=== PATIENT | male | born 1955 | race Caucasian/White ===

== ENCOUNTER 2016-08-20 10:13 | Inpatient (IN) | payer BC ==
--- NOTE | 2016-08-20 10:44 | EDPHY ---
H & P Time Seen by Provider: 08/20/16 10:28 HPI/ROS: CHIEF COMPLAINT: Right hip pain HISTORY OF PRESENT ILLNESS: 60-year-old male presents to the emergency department with pain in his right hip. Patient was at his home in the [facility] this afternoon and tripped over something and fell directly on his right hip on the concrete. EMS transported the patient to the emergency department. The patient complains of isolated pain to the right hip. He has pain with movement. He has been unable to bear weight. He denies hitting his head or losing consciousness. Denies headache or neck pain. Denies back pain. Denies chest pain or difficulty breathing. Denies abdominal pain. Denies symptoms in his right upper extremities or his left upper or lower extremities. Denies paresthesias. REVIEW OF SYSTEMS: Constitutional: No fever, no chills. Eyes: No double or blurry vision. ENT: No sore throat. Respiratory: No cough, no shortness of breath. Cardiac: No chest pain. Gastrointestinal: No abdominal pain, vomiting or diarrhea. Genitourinary: No dysuria. Musculoskeletal: No neck or back pain. Skin: No rashes. Neurological: No headache. Past Medical/Surgical History: Depression, BPH Social History: and lives in [place] Smoking Status: Never smoked Physical Exam: General Appearance: Alert, no distress. No visible signs of trauma to his head. Eyes: Pupils equal and round. Extraocular motions are all intact. ENT: Mouth: Mucous membranes moist. Respiratory: No wheezing, rhonchi, or rales, lungs are clear to auscultation. Cardiovascular: Regular rate and rhythm. Gastrointestinal: Abdomen is soft and nontender, no masses, no rebound or guarding, bowel sounds normal. Neurological: Alert and oriented x 3, cranial nerves II through XII grossly intact Skin: Warm and dry, no rashes. Musculoskeletal: Nontender to palpate along the cervical, thoracic or lumbar spine. Neck is supple. Extremities: Mild tenderness with palpation along the lateral aspect of the right hip. Mild pain with external and internal rotation of the right hip. His pelvis is stable. Full range of motion of his left lower extremity and upper extremities bilaterally. Psychiatric: Patient is oriented X 3, there is no agitation. Constitutional: Initial Vital Signs Temperature (C) 36.5 C 08/20/16 10:28 Heart Rate 82 08/20/16 10:28 Respiratory Rate 16 08/20/16 10:28 Blood Pressure 132/76 H 08/20/16 10:28 O2 Sat (%) 89 L 08/20/16 10:28 O2 Delivery Mode Nasal Cannula O2 (L/minute) 2 Allergies/Adverse Reactions: No Known Allergies Allergy (Unverified 08/20/16 10:27) Home Medications: Medication Instructions Recorded Percocet 5-325 mg Tablet 08/20/16 Tamsulosin HCl 08/20/16 Wellbutrin 100mg (*) 08/20/16 Medical Decision Making - Diagnostics Imaging Results: Imaging Impressions Hip X-Ray 08/20/16 10:42 Impression: Comminuted intertrochanteric fracture of the right hip. Imaging: I viewed and interpreted images myself ED Course/Re-evaluation: 60-year-old male presents to the emergency department by ambulance with isolated right hip pain after fall. X-rays reveal right intertrochanteric fracture. I spoke with physician clinic office assistant working with the on-call orthopedic surgeon, Dr. Jem Mcdonough, who will take this patient to the operating room after he is medically cleared at 4:45 p.m.. The patient will be admitted to Dr. Roberto Ricardo to the medical-surgical floor and he was kept NPO. Patient was given 0.5 mg of IV Dilaudid and 4 mg of Zofran IV for pain and nausea. Differential Diagnosis: Including but not limited to fracture, dislocation, contusion, sprain - Data Points Laboratory Results: Laboratory Results 08/20/16 13:20 08/20/16 08/20/16 13:20 13:20 WBC 9.49 10^3/uL 10^3/uL (3.80-9.50) RBC 4.57 10^6/uL 10^6/uL (4.40-6.38) Hgb 14.1 g/dL g/dL (13.7-17.5) Hct 42.7 % % (40.0-51.0) MCV 93.4 fL fL (81.5-99.8) MCH 30.9 pg pg (27.9-34.1) MCHC 33.0 g/dL g/dL (32.4-36.7) RDW 12.5 % % (11.5-15.2) Plt Count 106 10^3/uL L 10^3/uL (150-400) MPV 11.4 fL fL (8.7-11.7) Neut % (Auto) 75.0 % H % (39.3-74.2) Lymph % (Auto) 19.4 % % (15.0-45.0) Gilliam % (Auto) 4.5 % % (4.5-13.0) Eos % (Auto) 0.5 % L % (0.6-7.6) Baso % (Auto) 0.2 % L % (0.3-1.7) Nucleat RBC Rel Count 0.0 % % (0.0-0.2) Absolute Neuts (auto) 7.11 10^3/uL H 10^3/uL (1.70-6.50) Absolute Lymphs (auto) 1.84 10^3/uL 10^3/uL (1.00-3.00) Absolute Monos (auto) 0.43 10^3/uL 10^3/uL (0.30-0.80) Absolute Eos (auto) 0.05 10^3/uL 10^3/uL (0.03-0.40) Absolute Basos (auto) 0.02 10^3/uL 10^3/uL (0.02-0.10) Absolute Nucleated RBC 0.00 10^3/uL 10^3/uL (0-0.01) Immature Gran % 0.4 % % (0.0-1.1) Immature Gran # 0.04 10^3/uL 10^3/uL (0.00-0.10) Sodium Pending Potassium Pending Chloride Pending Carbon Dioxide Pending Anion Gap Pending BUN Pending Creatinine Pending Estimated GFR Pending Glucose Pending Calcium Pending Medications Given: Discontinued Medications Hydromorphone HCl (Dilaudid) 0.5 mg IVP EDNOW ONE Stop: 08/20/16 11:26 Last Admin: 08/20/16 11:34 Dose: 0.5 mg Ondansetron HCl (Zofran) 4 mg IVP EDNOW ONE Stop: 08/20/16 11:26 Last Admin: 08/20/16 11:40 Dose: 4 mg Departure - Departure Disposition: [facility] Inpatient Acute Clinical Impression: Closed right hip fracture Qualifiers: Encounter type: initial encounter Qualified Code(s): S72.001A - Fracture of unspecified part of neck of right femur, initial encounter for closed fracture Condition: Good Referrals: Patient,NotPresent [Unknown] - As per Instructions
[2016-08-20] MEDS ORDERED: HYDROmorphONE/DILAUDID 1 MG/ML SYR IVP ONE (11:25)
[2016-08-20] MEDS ORDERED: ONDANSETRON 4 MG/2 ML VIAL IVP ONE (11:25)
[2016-08-20] MEDS ORDERED: HYDROmorphONE/DILAUDID 1 MG/ML SYR ONE (11:26)
[2016-08-20 13:27] LABS: % IMMATURE GRANULYOCYTES 0.4 % (0.0-1.1); ABSOLUTE IMMATURE GRANULOCYTES 0.04 10^3/uL (0.00-0.10); ADD DIFF? NO; ADD MORPH? NO; ADD SCAN? NO; ATYPICAL LYMPHOCYTE FLAG 10 (0-99); FRAGMENT RBC FLAG 0 (0-99); HEMATOCRIT 42.7 % (40.0-51.0); HEMOGLOBIN 14.1 g/dL (13.7-17.5); LEFT SHIFT FLG 0 (0-99); LIPEMIA HEMOLYSIS FLAG 80 (0-99); MEAN CELL HEMOGLOBIN 30.9 pg (27.9-34.1); MEAN CELL VOLUME 93.4 fL (81.5-99.8); MEAN PLATELET VOLUME 11.4 fL (8.7-11.7); PLATELET CLUMPS FLAG 0 (0-99); PLATELET COUNT 106 10^3/uL (150-400); RED BLOOD CELL COUNT 4.57 10^6/uL (4.40-6.38); RED CELL DISTRIBUTION WIDTH 12.5 % (11.5-15.2)
[2016-08-20] MEDS ORDERED: ONDANSETRON DISINTEGRATING 4 MG TAB PO PRN (13:29)
[2016-08-20] MEDS ORDERED: ACETAMINOPHEN 325 MG TAB PO PRN (13:29)
[2016-08-20] MEDS ORDERED: ONDANSETRON 4 MG/2 ML VIAL IVP PRN (13:29)
[2016-08-20] MEDS ORDERED: D5W 1/2 NS W/ 20 KCl/L 1,000 ML IV SCH (13:30)
[2016-08-20] MEDS ORDERED: MAGNESIUM HYDROXIDE 30 ML UDCUP PO PRN (13:32)
[2016-08-20] MEDS ORDERED: LACTULOSE 20 GM/30 ML UDCUP PO PRN (13:32)
[2016-08-20] MEDS ORDERED: POLYETHYLENE GLYCOL 3350 17 GM PKT PO PRN (13:32)
[2016-08-20] MEDS ORDERED: BISACODYL 10 MG SUPP PR PRN (13:32)
[2016-08-20 13:38] LABS: ANION GAP 7 mEq/L (8-16); CALCIUM 8.8 mg/dL (8.5-10.4); CARBON DIOXIDE 28 mEq/l (22-31); CHLORIDE 104 mEq/L (97-110); CREATININE 0.9 mg/dL (0.7-1.3); GLOMERULAR FILTRATION RATE > 60; GLUCOSE 101 mg/dL (70-100); POTASSIUM 4.3 mEq/L (3.5-5.2); SODIUM 139 mEq/L (134-144)
[2016-08-20] MEDS ORDERED: HYDROmorphONE/DILAUDID 1 MG/ML SYR IVP PRN (15:08)
[2016-08-20] MEDS ORDERED: LIDOCAINE 1% 300 MG/30 ML SDV ONE (15:46)
[2016-08-20] MEDS ORDERED: BUPIVACAINE 0.5% 30 ML SDV ONE (15:46)
[2016-08-20] MEDS ORDERED: MIDAZOLAM 2 MG/2 ML VIAL ONE (16:13)
[2016-08-20] MEDS ORDERED: fentaNYL 100 MCG/2 ML INJ ONE ×2 (16:29→16:30)
[2016-08-20] MEDS ORDERED: PROPOFOL 200 MG/20 ML VIAL ONE (16:29)
[2016-08-20] MEDS ORDERED: DEXAMETHASONE 4 MG/ML VIAL ONE (16:30)
[2016-08-20] MEDS ORDERED: METOCLOPRAMIDE 10 MG/2 ML VIAL ONE (16:30)
[2016-08-20] MEDS ORDERED: RANITIDINE 50 MG/2 ML VIAL ONE (16:30)
[2016-08-20] MEDS ORDERED: CEFAZOLIN 2 GM/DEXTROSE/100 ML BAG IV ONE (16:37)
[2016-08-20] MEDS ORDERED: ceFAZolin 2 GM/DEXTROSE 100 ML IV ONE (17:00)
[2016-08-20] MEDS ORDERED: PHENYLEPHRINE HCL 100 MCG/ML SYR ONE (17:04)
[2016-08-20] MEDS ORDERED: epHEDrine SULFATE 10 MG/ML SYR ONE (17:14)
--- NOTE | 2016-08-20 17:24 | GHP ---
[f rep st] PREOP HISTORY AND PHYSICAL DATE OF ADMISSION: 08/20/2016 PRIMARY CARE PROVIDER: In [place], [place]. CHIEF COMPLAINT: Acute hip pain. HISTORY OF PRESENT ILLNESS: A 60-year-old male presenting with acute hip pain characterized as a sh brii, severe pain located in his right hip with onset of symptoms on the afternoon of this presentati on and duration persistent thereafter. He reports that the pain is exacerbated by movement, allevia jazmin by rest, alleviated by Dilaudid received in the emergency department. The pain began after he e xperienced a mechanical fall while he was ambulating in his back yard and tripped over a [employer] p ipe. He reports that he fell and struck his hip on concrete, immediately experiencing pa in and inability to ambulate. The patient reports that prior to his mechanical fall, he had otherwi se been feeling well, has not recently experienced any chest pain with physical exertion and has not recently experienced any reduction in exercise tolerance. He denies having any other physical trau ma other than the aforementioned hip pain. REVIEW OF SYSTEMS: Hip pain. All other 10-point review of systems otherwise negative. PAST MEDICAL HISTORY: BPH, depression, thoracic compression fracture. PAST SURGICAL HISTORY: Cervical spine fusion C5 to C7. HOME MEDICATIONS: Wellbutrin, terazosin, other medications yet to be reconciled. SOCIAL HISTORY: Patient does not smoke. He occasionally has an alcoholic beverage. He has never e xperienced acute alcohol withdrawal. He reports that he travels frequently for work, but lives [facility] here in [place]. He is physically active and engages in physical exercise without any reduction in exercise tolerance as an issue. FAMILY HISTORY: The patient does not have any family history of venous thromboembolism or bony abno rmalities. ALLERGIES: No known drug allergies. PHYSICAL EXAM: VITAL SIGNS: Systolic blood pressure 132, heart rate 82, respirations 16, SpO2 of 8 9% on room air, temperature 36.5. GENERAL: Alert, awake, oriented x3, no apparent distress, pain l evel is currently 7/10. The patient is well nourished, well appearing. CARDIAC: Regular rate and rhythm. No murmurs, rubs, or gallops appreciated. No lower extremity edema. MUSCULOSKELETAL: Rig ht lower extremity shortening and external rotation with tenderness to palpation over the right hip. PULMONARY: Clear to auscultation bilaterally. No crackles or wheezes. GASTROINTESTINAL: Bowel sounds are present. Abdomen is soft, nontender, nondistended. No masses are palpated. NEURO: Mot or strength 5/5 right lower extremity. Sensation intact in the right lower extremity. PSYCH: Coop erative, follows commands, not encephalopathic. ENT: Moist mucous membranes. No glossitis. EYES: Extraocular movements intact, anicteric sclerae. DATA: Platelet count 100. Creatinine 0.9, glucose 100. IMAGING: Hip x-ray demonstrating comminuted intertrochanteric right hip fracture. ASSESSMENT: A 60-year-old male presenting with acute right hip fracture status post mechanical fall . PLAN: 1. Hip fracture. Acute, new problem this provider, further workup indicated. Comminuted intertroc hanteric fracture on x-ray, requiring surgical intervention. Dr. Bowman to perform surgery this af ternoon. RCRI of 0, confirming a 0.5% perioperative risk of cardiovascular morbidity and/or mortali ty, confirming this to be a low risk patient for an intermediate risk surgery, would not recommend a md further cardiac risk stratification prior to undergoing surgery. Of note, patient's metabolic eq uivalents are good prior to surgery, which has good prognostic value. 2. IV and oral pain control ordered, bowel regimen ordered, incentive spirometry. 3. Get vitamin D, phosphorus, calcium levels in a.m. to determine whether patient has any predispos ition to osteoporosis, which would otherwise necessitate a DEXA scan as an outpatient. 4. Diet: N.p.o. with IV fluids. 5. Prophylaxis: Moderate risk patient, SCDs placed, initiate DVT prophylaxis pharmacologically pos toperatively under the orthopedic surgeon's discretion. 6. Code: Full, is GRISELDA. DISPOSITION: Anticipated date of discharge is uncertain at this time. Anticipated length stay is g reater than 48 hours. Inpatient admission status for acute right hip fracture requiring surgical in tervention. Of note, the patient's daughter has graduation on 08/22 a.m., and the patient would like to be disch arged if possible by that time. I have discussed the patient's presentation with Joellen Turner, hospitalist provider, and she has ass igned the patient to me for admission. /[id number]/MODL
[2016-08-20] MEDS ORDERED: PHENYLEPHRINE 10 MG/ML SDV ONE (17:37)
[2016-08-20] MEDS ORDERED: ONDANSETRON 4 MG/2 ML VIAL ONE (18:12)
[2016-08-20] MEDS ORDERED: NEOSTIGMINE METHYLSULFATE 5 MG/5 ML SYR ONE (18:14)
[2016-08-20] MEDS ORDERED: GLYCOPYRROLATE 0.2 MG/1 ML VIAL ONE (18:14)
--- NOTE | 2016-08-20 18:49 | SOAPPROG ---
[facility] Progress Note Assessment/Plan: Assessment: Edwar is a pleasant 60 year old male who presented to the ER with right hip pain after falling at home. He was found to have a right intertrochanteric femur fracture. PE: Alert and oriented x 3 Right hip pain to palpation NV intact RLE Plan: Pt will be taken to the OR this afternoon. 08/20/16 18:45 Objective: Vital Signs Temp Pulse Resp BP Pulse Ox 36.5 C 71 16 108/70 98 08/20/16 10:28 08/20/16 14:23 08/20/16 14:23 08/20/16 14:23 08/20/16 14:23 Laboratory Results 08/20/16 13:20 08/20/16 13:20 ICD10 Worksheet Patient Problems: Problems Problem Status Onset Closed right hip fracture Acute
--- NOTE | 2016-08-20 18:50 | POSTOPPROG ---
Post Op Note Date of Operation: 08/20/16 Surgeon: Jem Mcdonough Multilith Operator: Latisha Velasquez PA-C Anesthesia: GET(General Endotracheal) Pre-op Diagnosis: right femur intertrochanteric fracture Post-op Diagnosis: right femur intertrochanteric fracture Procedure: ORIF Right femur fracture Inf/Abcess present in the surg proc area at time of surgery?: No Depth: Deep Incisional (Fascial) EBL: 100-500
[2016-08-20] MEDS ORDERED: OXYCODONE/APAP 5/325 TAB PO PRN (18:53)
--- NOTE | 2016-08-20 18:53 | SOAPPROG ---
SOAP Progress Note Assessment/Plan: Assessment: Edwar is a pleasant 60 year old male POD#0 from ORIF right femur fracture. PE: Alert and oriented x 3 Dressing CDI NV intact RLE Plan: 1-Pt is to be weight bearing as tolerated 2-Keep dressing clean and dry. Reinforce dressing as needed 3-PT/OT 4-Ancef 1g q8 hours beginning at 12am on 08/21/16 x 2 doses 5-Discharge once cleared from PT/OT with post operative appointment scheduled with Dr. Mcdonough in 2 weeks. Scripts for pain medication are in chart. 08/20/16 18:45 08/20/16 18:50 08/21/16 13:20 Objective: Vital Signs Temp Pulse Resp BP Pulse Ox 36.5 C 71 16 108/70 98 08/20/16 10:28 08/20/16 14:23 08/20/16 14:23 08/20/16 14:23 08/20/16 14:23 Laboratory Results 08/20/16 13:20 08/20/16 13:20 ICD10 Worksheet Patient Problems: Problems Problem Status Onset Closed right hip fracture Acute
[2016-08-20] MEDS ORDERED: TEMAZEPAM 15 MG CAP PO PRN (19:49)
[2016-08-20] MEDS: SENNOSIDES/DOCUSATE SODIUM TAB PO SCH (20:20)
[2016-08-20] MEDS: oxyCODONE IR 5 MG TAB PO PRN (20:22)
[2016-08-20] MEDS ORDERED: TERAZOSIN HCL 5 MG CAP PO SCH (21:00)
--- NOTE | 2016-08-20 22:10 | GCON ---
[f rep st] CONSULTATION Patient Name: MIRIAN GRAY N-Number: [id number] Date of : 1955 Patient Status: Inpatient Attending Doctor: Dr. Jesse Ricardo Consulting Doctor: Jem Mcdonough MD Date of service: 08/20/16 CPT codes: CPT code 85632 ER visit requiring admission or initial inpatient visit, level three Modifier 57 Decision for surgery CHIEF COMPLAINT: Right hip pain after a fall HISTORY OF PRESENT ILLNESS: This is a very pleasant 60 year old male with a significant history for a fall from standing on his right hip earlier today. He was taken to the [facility] ED and was found to have a complete and displaced right hip intertrochanteric femur fracture. He reports no loss of consciousness or head trauma. He reports no other pain. PROBLEM LIST: Right femur intertrochanteric fracture PAST MEDICAL HISTORY: BPH, depression, thoracic compression fracture SURGERIES: C-spine fusion C5-C7 SOCIAL HISTORY: Non-contributory FAMILY HISTORY: Non-contributory CURRENT MEDICATIONS: Wellbutrin, terazosin ALLERGIES: NKDA REVIEW OF SYSTEMS Constitutional: No unexpected weight loss, weight gain, fevers, chills, or fatigue. Eyes: No blurred or double vision, no eye pain, redness or swelling. ENT: No headaches, difficulty swallowing, nose bleeds, tinnitus, or earaches. Cardiovascular: No chest pain, palpitations, fainting or murmurs. Respiratory: No shortness of breath, wheezing, cough, of difficulty breathing. GI: No reflux, no nausea or vomiting, no constipation, diarrhea, or bloody stools. Genitourinary: No urinary frequency or urgency, no pain with urination. Skin: No skin changes, rashes, itching, or redness. Neurologic: No unsteadiness of gait, no dizziness, tremors, or seizures. Psychiatric: No nervousness, anxiety, depression, or hallucinations. Hematologic: No increased bleeding or easy bruising. Endocrine: No excessive thirst or urination and no heat or cold intolerances. Allergic: No reactions to food or environment. Musculoskeletal: See history of present illness. PHYSICAL EXAM General: No apparent distress. Orientation: Alert and oriented times three Mood and affect: Calm, appropriate. Gait and station: Unable to assess Skin: Warm, dry. Lymph: Non tender neck, axillary and inguinal nodes. Chest: Equal expansion, no pain with deep breaths, speaks in coherent sentences. Cardiovascular: Regular pulse. Abdomen: Soft, non-tender, no masses, no palpable hernias. Bilateral hip examination Inspection/palpation: Right: TTP overlying the right groin. RLE shortened and externally rotated Left: Soft, non-tender. Range of motion Flexion: ZACK / 100 / 100 Extension: ZACK / 30 / 30 Abduction: ZACK / 40 / 40 Adduction: ZACK / 20 / 20 Strength (R / L / Normal) Muscle(s) Quadriceps (L3-L4): / Hamstrings (L4-L5): / / Tibialis anterior (L4): / EHL (L5): FHL (S1): Gastroc-soleus (S1): Sensory (R / L / Normal) Dermatomes L1 (groin): + / + / + L2 (medial upper thigh): + / + / + L3 (anterior thigh): + / + / + L4 (medial ankle): + / + / + L5 (first dorsal web space): + / + / + S1 (lateral border of foot): + / + / + Peripheral nerves Superficial peroneal: + / + / + Deep peroneal: + / + / + Sural: + / + / + Tibial: + / + / + Saphenous: + / + / + Vascular exam (R / L / Normal) Dorsalis pedis pulse: 2+ / 2+ / 2+ Tibialis posterior pulse: 2+ / 2+ / 2+ Medical decision making Data Imaging study: right hip radiographs, two views Action: interpreted Interpretation / pertinent findings: right intertrochanteric femur fracture, complete and displaced Diagnoses New diagnosis: right intertrochanteric femur fracture Work-up planned: yes: see assessment and plan Assessment and plan This is a pleasant 60 year old patient with right femur intertrochanteric fracture -As such I have discussed with the patient the risks, benefits, alternatives, and complications associated with both non-operative (specifically, observation ) and operative (specifically, right hip intertrochanteric femur fracture open reduction and internal fixation) forms of treatment -The patient fully understands the risks, benefits, alternatives, and complications of both forms of treatment and the patient wishes to proceed with operative intervention as outlined above - He has signed informed consent form and surgery will be performed as soon as the OR is available Time I have spent 80 minutes of [id number] time with the patient during this visit. Over fifty percent of this time was spent counseling the patient on the risks, benefits, alternatives, and complications of both non-operative and operative forms of treatment as outlined above. /[id number]/MODL MTDD
[2016-08-21] MEDS: oxyCODONE IR 5 MG TAB PO PRN ×5 (01:08→18:21)
[2016-08-21 05:32] LABS: % IMMATURE GRANULYOCYTES 0.6 % (0.0-1.1); ABSOLUTE IMMATURE GRANULOCYTES 0.05 10^3/uL (0.00-0.10); ADD DIFF? NO; ADD MORPH? NO; ADD SCAN? NO; ATYPICAL LYMPHOCYTE FLAG 10 (0-99); FRAGMENT RBC FLAG 0 (0-99); HEMATOCRIT 38.5 % (40.0-51.0); HEMOGLOBIN 12.8 g/dL (13.7-17.5); LEFT SHIFT FLG 0 (0-99); LIPEMIA HEMOLYSIS FLAG 80 (0-99); MEAN CELL HEMOGLOBIN CONCENTR. 33.2 g/dL (32.4-36.7); MEAN CELL VOLUME 93.2 fL (81.5-99.8); MEAN PLATELET VOLUME 11.7 fL (8.7-11.7); PLATELET CLUMPS FLAG 0 (0-99); PLATELET COUNT 106 10^3/uL (150-400); RED BLOOD CELL COUNT 4.13 10^6/uL (4.40-6.38); RED CELL DISTRIBUTION WIDTH 12.5 % (11.5-15.2)
[2016-08-21 06:02] LABS: ALANINE AMINOTRANSFERASE 36 IU/L (21-72); ALBUMIN 3.6 g/dL (3.5-5.0); ALKALINE PHOSPHATASE 64 IU/L (38-126); ANION GAP 7 mEq/L (8-16); ASPARTATE AMINOTRANSFERASE 22 IU/L (17-59); BILIRUBIN,TOTAL 0.7 mg/dL (0.1-1.4); CALCIUM 8.6 mg/dL (8.5-10.4); CARBON DIOXIDE 26 mEq/l (22-31); CHLORIDE 106 mEq/L (97-110); CREATININE 0.9 mg/dL (0.7-1.3); GLOMERULAR FILTRATION RATE > 60; GLUCOSE 128 mg/dL (70-100); POTASSIUM 4.9 mEq/L (3.5-5.2); SODIUM 139 mEq/L (134-144); TOTAL PROTEIN 6.1 g/dL (6.3-8.2)
[2016-08-21 06:14] LABS: VITAMIN D 25-HYDROXY TOTAL 33.7 ng/mL (30-100)
[2016-08-21] MEDS ORDERED: buPROPion XL 150 MG TAB PO SCH (09:00)
[2016-08-21] MEDS ORDERED: Vilazodone Hcl [Viibryd] 40 MG PO SCH (09:00)
[2016-08-21] MEDS: SENNOSIDES/DOCUSATE SODIUM TAB PO SCH (10:16)
[2016-08-21] MEDS ORDERED: FUROSEMIDE 20 MG TAB PO ONE (14:42)
--- NOTE | 2016-08-21 15:03 | PDDCSUM ---
Discharge Summary Discharge Summary: 60 year old male admitted after a fall with subsequent right femur fracture. Surgically repaired now on POD#1 from ORIF right femur fracture. Per Ortho he is weight bearing as tolerated. will f/u with Ortho in 2 weeks. Had some issues with hypoxemia likely fluid related and was given PO Lasix 20 mg x 1 on the day of discharge DDX: #Right femur fracture #hypoxemia PE: Alert and oriented x 3 Dressing CDI rrr decreased lung sounds Discharge Meds: see med rec f/u. Per above. total time spent on discharge is 35 mins
--- NOTE | 2016-08-21 15:27 | PDIAF ---
- Diagnosis Diagnosis: right hip fracture Code Status: Full Code - Medication Management Discharge Medications: Medications to Continue on Transfer Ibuprofen [Motrin (*)] 200 mg PO DAILY PRN 08/20/16 [Last Taken 08/20/16] Terazosin HCl 10 mg PO HS 08/20/16 [Last Taken 08/19/16] Vilazodone HCl [Viibryd] 40 mg PO DAILY 08/20/16 [Last Taken 08/19/16] Zaleplon [ZALEPLON] 5 mg PO HS PRN 08/20/16 [Last Taken Unknown] buPROPion XL [Wellbutrin 150mg XL] 300 mg PO DAILY 08/20/16 [Last Taken 08/19/16 ] Polyethylene Glycol 3350 [Miralax 17 gm (*)] 17 gm PO DAILY PRN #0 pkt 08/21/16 [Last Taken Unknown] oxyCODONE/APAP 5/325 [Percocet 5/325 (*)] 1 - 2 tab PO Q3HRS PRN #0 tab [Last Taken Unknown] Discharge Medications: Refer to the Discharge Home Medication list for PRN reason. - Orders Services needed: Home Assisted Care Face to Face: I certify that this patient was under my care and that I had the required [id number] encounter meeting the encounter requirements on the discharge day. My findings support the fact that the patient is homebound as defined in CMS Chapter 7 Medicare Benefits Manual 30.1.1, The condition of the patient is such that there exists a normal inability to leave home and consequently, leaving home would require a considerable and taxing effort. Diet Recommendation: no restrictions on diet Diet Texture: Regular Texture Diet - Follow Up Care Current Providers and Referrals: Patient,NotPresent [Unknown] - As per Instructions
[2016-08-21 17:15] VITALS: BP 142/76; PULSE 81; RESP 14; TEMP 98.1; O2SAT 97
--- NOTE | 2016-08-22 08:49 | SOAPPROG ---
[facility] Progress Note Assessment/Plan: Assessment: Edwar is a pleasant 60 year old male POD#1 from ORIF right femur fracture. He reports he is doing well and pain is under control with po pain medication. PE: Alert and oriented x 3 Dressing CDI NV intact RLE No pain with calf compression Plan: 1-Pt is to be weight bearing as tolerated 2-Keep dressing clean and dry. Reinforce dressing as needed 3-PT/OT 4-Discharge tomorrow morning once cleared from PT/OT with post operative appointment scheduled with Dr. Mcdonough in 2 weeks. Scripts for pain medication are in chart. 08/20/16 18:45 08/20/16 18:50 08/21/16 13:20 08/22/16 08:44 Objective: Vital Signs Temp Pulse Resp BP Pulse Ox 36.7 C 81 14 142/76 H 97 08/21/16 16:00 08/21/16 16:00 08/21/16 16:00 08/21/16 16:00 08/21/16 16:00 Laboratory Results 08/21/16 05:03 08/21/16 05:03 08/21/16 08/22/16 08/23/16 05:59 05:59 05:59 Intake Total 1300 1000 Output Total 1000 1650 Balance 300 -650 ICD10 Worksheet Patient Problems: Problems Problem Status Onset Closed right hip fracture Acute
--- NOTE | 2016-08-23 14:34 | GOP ---
[f rep st] OPERATIVE REPORT PATIENT: MIRIAN GRAY DATE OF SERVICE: 08/20/16 PATIENT DATE OF : 1955 SURGEON: Jem Mcdonough M.D. TOGGLE PRESS OPERATOR: Latisha Velasquez PA-C Mrs. Hardy assistance was medically necessary for patient positioning and the retraction of vital structures. ANESTHESIA: General PRE-OPERATIVE DIAGNOSES: Right intertrochanteric femur fracture (ICD-10 code S72.143A Intertrochanteric femur fracture) POST-OPERATIVE DIAGNOSES: Right intertrochanteric femur fracture (ICD-10 code S72.143A Intertrochanteric femur fracture) OPERATIVE PROCEDURES: CPT code 36536 Treatment of an intertrochanteric femur fracture with an intramedullary implant EBL: 150cc COMPLICATIONS: None IMPLANTS: Synthes trochanteric fixation nail, 11mm by 170mm, 130 degree angle with a 100 mm helical blade and a 36 mm by 5mm distal interlocking bolt BRIEF CLINICAL NOTE: This is a very pleasant 60 year old male with a significant history for a right intertrochanteric femur fracture. As such, I have discussed the risks, benefits, alternatives, and complications associated with both non-operative (specifically, observation) and operative (specifically , right femur open reduction and internal fixation) forms of treatment. The patient fully understands the risks, benefits, alternatives, and complications associated with both forms of treatment and wishes to proceed with operative intervention as outlined above. The patient has signed the informed consent form for surgery. OPERATIVE NOTE: On the day of surgery, all of the patients questions were answered. The patient was then transferred from the pre-operative area into the operating room and a formal, Time-Out procedure was performed. The patient was identified by name, medical record number, social security number, and date of . In addition, the patients right lower extremity was identified as the correct portion of the patients body for surgery with the patients right proximal femur being identified as the correct portion of that extremity for surgery. The anesthesia team administered pre-operative antibiotics for prophylaxis. The patient was then moved onto the fracture table and the right lower extremity was placed in traction. The extremity was then prepped and draped in the normal sterile fashion. A sterile marking pen was then utilized to whitley out the tip of the greater trochanter and 2-3 cm incision several centimeters proximal to the tip of the greater trochanter. A number 15 blade was then used to incise the skin and meticulous hemostasis was obtained in the subcutaneous plane. The abductor fascia was then split longitudinally to provide access to the tip of the greater trochanter. The starting guidewire was then advanced through the wound onto the tip of the greater trochanter. The guidewire was then advanced into the proximal femur. Appropriate guidewire positioning was then confirmed on both PA and lateral C-arm images. Next, the starting reamer was then advanced over the guidewire to create an entry point into the proximal femur. Following this, the guidewire and the starting reamer were then removed and a ball-tipped guidewire was advanced into the proximal femoral canal. The guidewires position was confirmed on both PA and lateral C-arm images. Next, the proximal femur was reamed over the guidewire starting with an 8.5 mm reamer and increasing in 0.5mm increments up to a 12 mm reamer. The last reamer provided for an excellent fit in the proximal femoral canal. As such, an 11 mm diameter by 170mm, 130-degree angle trochanteric fixation nail was then opened and attached to the impaction device. The trochanteric fixation nail was then advanced over the ball-tipped guidewire under fluoroscopic control. Next, the outrigger aiming arm was attached to the impaction device and a separate incision was made to allow for insertion of the helical blade. The aiming guide for the helical blade was then advanced through this separate incision and brought into direct contact with the lateral femoral cortex. The guidewire was then advanced through the aiming arm into the proximal femur extending into the lower portion of the femoral neck and head. Appropriate guidewire positioning was then confirmed on both PA and lateral C-arm fluoroscopy. Next, the large drill was utilized to open the lateral femoral cortex. The guidewire was then measured at a length of 100 mm and the stepped reamer was then set for this length. The guidewire was then over drilled with the stepped reamer. Following this, a 100 mm helical blade was then selected and opened and attached to the impaction device. The helical blade was then inserted over the guidewire. Its positioning was confirmed on both PA and lateral C-arm fluoroscopy. Next, the aiming guide for the helical blade was then utilized to compress across the site of the fracture and then the helical blade was locked into place through the proximal end of the nail. Following this, one distal interlocking bolt (36mm in lengthy by 5mm in diameter ) was inserted through a 5mm incision distally. Final PA and lateral C-arm fluoroscopic images were then obtained. All images demonstrated an anatomic reduction at the site of the fracture along with appropriate implant positioning and length in all views. These images were printed and saved. Next, all incisions were copiously irrigated with sterile normal saline. The fascia was re-approximated with 2-0 vicryl sutures and the skin was re- approximated with surgical brendon. The skin was then cleaned with sterile normal saline and dried. A mixture of 1% lidocaine and 0.5% Marcaine was then utilized to provide local anesthesia at the operative sites. Xeroform gauze dressings were then applied followed by a dry sterile dressing. The patient was then reversed from anesthesia and transferred from the operating room table onto the post-operative gurney and transferred from the operating room to the PACU in stable condition. POST-OPERATIVE PLAN: The current dressings will be left in place for the next 2 days. The patient will be admitted to the hospitalist service for pain control and the initiation of physical therapy. He may WBAT on his right lower extremity. /[id number]/MODL MTDD
== END 2016-08-21 19:16 | disposition home health service (06) | DRG 482 ==
LOC: UNDOADMIN 13:29 → F3N 19:40
PROVIDERS: ADMIT Internal Medicine; ATTEND Internal Medicine
PROC: 0QH806Z Insertion of Intramedullary Internal Fixation Device into Right Femoral Shaft, Open Approach (ICD-10-PCS; principal; 2016-08-20 16:30)
DX: S72.141A Displaced intertrochanteric fracture of right femur, initial encounter for closed fracture (principal); W01.0XXA Fall on same level from slipping, tripping and stumbling without subsequent striking against object, initial encounter; Y92.096 Garden or yard of other non-institutional residence as the place of occurrence of the external cause; N40.0 Benign prostatic hyperplasia without lower urinary tract symptoms; Z98.1 Arthrodesis status
CPT/HCPCS: 97116-GP; 97161-GP; 97165-GO; 97535-GO; C1713; C1769; J0690; J1100; J1170; J2250; J2370; J2405; J2704; J2710; J2765; J2780; J3010

== ENCOUNTER → 2018-08-02 | Outpatient (CLI) | payer BC | LOC: FIMAGING 09:14 | PROVIDERS: ATTEND Family Medicine | DX: R53.83 Other fatigue (principal) ==